=== PATIENT | male | born 1965 | race Two or more races ===

== ENCOUNTER 2019-07-26 23:44 | Emergency (ER) | payer OTHER ==
[~2019-07-26] VITALS: Ht 175.3 cm; Wt 98.9 kg
[~2019-07-26 23:44] MED LIST: AMBIEN PAK10 MG; DEPAKOTE ER250 MG; ESTAZOLAM2 MG; KLONOPIN1 MG/TAB; PAXIL20 MG; ZYPREXA20 MG; ZYPREXA7.5 MG
[2019-07-27] MEDS ORDERED: DOLOGESIC 500-1 EACH PO (05:43)
== END 2019-07-27 05:48 | disposition home or self-care (01) ==
LOC: ER 23:44
DX: B34.9 Viral infection, unspecified (principal)

== ENCOUNTER 2023-08-18 00:02 | Emergency (ER) | payer OTHER ==
[~2023-08-18] VITALS: Ht 175.3 cm; Wt 95.3 kg
[~2023-08-18 00:02] MED LIST changes: +DOLOGESIC 500-1 EACH PO
[2023-08-18] MEDS ORDERED: TENORMIN50 M1 PO (00:28)
[2023-08-18] MEDS ORDERED: KETOROLAC TROMETHAMINE 60 MG VIAL IM STA (04:03)
[2023-08-18] MEDS ORDERED: ORPHENADRINE CITRATE 30 MG/ML AMPUL IM STA (04:03)
== END 2023-08-18 05:56 | disposition home or self-care (01) ==
LOC: ER 00:02
DX: M54.50 Low back pain, unspecified (principal)
CPT/HCPCS: 72220; 96372; 99283; J1885; J2360

== ENCOUNTER 2025-03-08 15:56 | Emergency (ER) | payer OTHER ==
[~2025-03-08] VITALS: Ht 175.3 cm; Wt 95.3 kg
[~2025-03-08 15:56] MED LIST changes: +TENORMIN50 M1 PO
[2025-03-08] MEDS ORDERED: METFORMIN HCL1000 M2 (16:32)
[2025-03-08] MEDS ORDERED: HUMULIN N100 UNIT/1 SUBCUTANEO (16:34)
[2025-03-08] MEDS ORDERED: ONDANSETRON 4 MG TAB.RAPDIS PO ONE (17:15)
[2025-03-08] MEDS ORDERED: CEFTRIAXONE SODIUM 500 MG VIAL IM ONE (17:15)
[2025-03-08] MEDS ORDERED: INSULIN NPH HUM/REG INSULIN HM 1,000 UNIT/10 ML UNITS SUBCUTANEO ONE (17:15)
[2025-03-08] MEDS ORDERED: FAMOTIDINE/PF 20 MG/2 ML VIAL IV ONE (17:15)
[2025-03-08] MEDS ORDERED: 0.9 % SODIUM CHLORIDE 1,000 ML IV SCH (17:15)
[2025-03-08] MEDS ORDERED: ONDANSETRON HCL 2 MG/ML VIAL ONE (17:35)
[2025-03-08] MEDS ORDERED: FAMOTIDINE/PF 20 MG/2 ML VIAL ONE (17:36)
[2025-03-08] MEDS ORDERED: WATER FOR INJ.,BACTERIOSTATIC 30 ML VIAL IJ ONE (17:38)
[2025-03-08 17:49] LABS: BASO % 0.8 % (0.1-1.2); EOS # 0.04 (0.04-0.54); EOS % 0.4 % (0.7-7.0); LYMPH # 1.50 (1.18-3.74); LYMPH % 16.6 % (19.3-53.1); MEAN PLATELET VOLUME 11.00 fl (9.4-12.4); MONO # 0.67 (0.24-0.82); MONO % 7.4 % (4.7-12.5); NEUT # 6.71 (1.56-6.13); NEUT % 74.6 % (34.0-71.1); RED CELL DISTRIBUTION WIDTH 11.6 % (11.6-14.4)
[2025-03-08 17:55] LABS: ERYTHROCYTE SEDIMENTATION RATE 10 mm/hr (0-20)
[2025-03-08 18:03] LABS: ALT/SGPT 84.0 U/L (12-78); AST/SGOT 40.0 U/L (15-37); BILIRUBIN TOTAL 1.44 mg/dL (0.3-1.2); BUN CREA RATIO 8.0 (7.0-25.0); CREATININE SERUM 1.32 mg/dL (0.70-1.30); GFR 55.71; GLOBULINA 4.7 G/DL (2.4-3.5)
[2025-03-08 18:04] LABS: OSMOLALITY SERUM 279.0 MOSM/KG (275-295)
[2025-03-08 18:07] LABS: GLUCOSE FASTING 638.0 mg/dL (65-100)
[2025-03-08] MEDS ORDERED: INSULIN REGULAR, HUMAN 1,000 UNIT/10 ML UNITS SUBCUTANEO ONE (19:45)
[2025-03-08 19:51] LABS: URINE APPEARANCE Clear; URINE BILIRRUBIN Negative (NEGATIVE); URINE BLOOD Negative; URINE COLOR Yellow; URINE KETONE 15 (NEGATIVE); URINE LEUKOCYTE Negative; URINE NITRATE Negative; URINE PROTEIN Negative (NEGATIVE); URINE UROBILINOGEN 0.2 E.U./dl
[2025-03-08 19:55] LABS: URINE BACTERIA 11.9 uL (0.0-1933); URINE WBC 2.1 uL (0.0-23.2)
[2025-03-08 19:59] LABS: URINE CAST 0.00 uL (0.0-1.40); URINE EPITHELIAL CELLS 0.9 uL (0.0-38.8); URINE GLUCOSE >=1000 MG/DL (NEGATIVE); URINE RBC 0.7 uL (0.0-20.8)
[2025-03-09] MEDS ORDERED: INSULIN REGULAR, HUMAN 1,000 UNIT/10 ML UNITS SUBCUTANEO ONE (00:15)
[2025-03-09] MEDS ORDERED: FAMOTIDINE/PF 20 MG/2 ML VIAL ONE (00:19)
[2025-03-09] MEDS ORDERED: 0.9 % SODIUM CHLORIDE 1,000 ML IV ONE (00:30)
[2025-03-09] MEDS ORDERED: FAMOTIDINE/PF 20 MG/2 ML VIAL IV ONE (00:30)
[2025-03-09] MEDS ORDERED: CEFTRIAXONE SODIUM 1,000 MG VIAL IV ONE (00:30)
[2025-03-09] MEDS ORDERED: INSULIN REGULAR, HUMAN 1,000 UNIT/10 ML UNITS IV ONE ×2 (02:30→05:15)
[2025-03-09 02:39] LABS: BUN CREA RATIO 12.0 (7.0-25.0); CREATININE SERUM 1.21 mg/dL (0.70-1.30); GFR 61.59; OSMOLALITY SERUM 279.0 MOSM/KG (275-295)
[2025-03-09 02:43] LABS: GLUCOSE FASTING 384.0 mg/dL (65-100)
[2025-03-09] MEDS ORDERED: DOXYCYCLINE HY100 MG PO (06:45)
== END 2025-03-09 06:51 | disposition home or self-care (01) ==
LOC: ER 15:56
PROVIDERS: Student in an Organized Health Care Education/Training Program
DX: L03.012 Cellulitis of left finger (principal); E11.65 Type 2 diabetes mellitus with hyperglycemia; Z79.4 Long term (current) use of insulin; Z79.84 Long term (current) use of oral hypoglycemic drugs; I10 Essential (primary) hypertension
CPT/HCPCS: 36415; 73130; 82803; 96365; 96366; 99284; J0696; J3490; J7030